=== PATIENT | female | born 1995 | race African-American/Black ===

== ENCOUNTER 2019-11-26 14:10 | Inpatient (IN) | payer OTHER ==
[2019-11-26 15:18] VITALS: BMI 23.5
[2019-11-26] MEDS ORDERED: AMPICILLIN - 2 GM in SODIUM CHLORIDE 100 ML IVPB ONE (15:49)
--- NOTE | 2019-11-26 15:56 | HP ---
Past Medical History - Admission Chief Complaint: active labor History Source: Patient Limitations to Obtaining History: Language Barrier - Past Medical History ...: 2 ...Para: 1 ...Term: 1 ...: 0 ...Spon : 0 ...Induced : 0 ...Living Children: 1 ...Multiple Gestation: 0 ...LMP: 03/13/19 ... Weeks Gestation by Dates: 36.6 ...EDC by Dates: 12/17/18 ...EDC by Sono: 12/02/19 - Past Surgical History Past Surgical History: Yes: None Hx Myomectomy: No Hx Transabdominal Cerclage: No - Smoking History Smoking history: Never smoked Have you smoked in the past 12 months: No - Social History Usual Living Arrangement: Yes: With Spouse Home Medications - Allergies Allergies/Adverse Reactions: Allergies Allergy/AdvReac Type Severity Reaction Status Date / Time No Known Allergies Allergy Verified 11/26/19 15:01 - Home Medications Home Medications: Ambulatory Orders Caplet 325 mg PO DAILY 11/26/19 Physical Exam - Maternity Vital Signs: Vital Signs Temperature 98.1 F 11/26/19 15:11 Pulse Rate 98 H 11/26/19 15:11 Respiratory Rate 18 11/26/19 15:11 Blood Pressure 130/71 11/26/19 15:11 O2 Sat by Pulse Oximetry (%) Constitutional: Yes: Well Nourished Eyes: Yes: WNL HENT: Yes: WNL Neck: Yes: WNL Cardiovascular: Yes: WNL Lungs: Normal air movement - Abdominal Exam/OB Number of Fetuses: Single Presentation: Vertex Contractions: Yes Regularity: Regular Intensity: Moderate Monitor Mode: External Category: I Accelerations: Uniform Decelerations: None - Vaginal Exam/OB Vaginal Bleeding: No Dilatation (cm): 8 Amniotic Membrane Status: Ruptured Presentation: Vertex/Position Station: 0 - Physical Exam Edema: No Problem List - Problems (1) 37 weeks gestation of Code(s): Z3A.37 - 37 WEEKS GESTATION OF Assessment/Plan SROM; active labor/ + GBS for
[2019-11-26 16:03] LABS: BASO % 0.4 % (0-2.0); EOS % 0.5 % (0-4.5); HEMATOCRIT 39.3 % (32.4-45.2); HEMOGLOBIN 13.1 GM/dL (10.7-15.3); LYMPH % 16.1 % (8-40); MCH 29.9 pg (25.7-33.7); MCHC 33.3 g/dl (32.0-36.0); MEAN CELL VOLUME 89.9 fl (80-96); MEAN PLT VOLUME 8.8 fl (7.5-11.1); MONO % 12.1 % (3.8-10.2); NEUT % 70.9 % (42.8-82.8); PLATELET COUNT 165 K/MM3 (134-434); RBC 4.37 M/mm3 (3.60-5.2); RDW 15.4 % (11.6-15.6); WHITE BLOOD COUNT 7.9 K/mm3 (4.0-10.0)
[2019-11-26 16:15] LABS: INR 0.91 (0.83-1.09); PROTHROMBIN TIME (PATIENT) 10.7 SEC (9.7-13.0)
[2019-11-26 16:18] LABS: ACTIVATED PTT 27.7 SECONDS (25.2-36.5)
[2019-11-26 16:28] LABS: CALCIUM 9.1 mg/dL (8.5-10.1); CREATININE 0.4 mg/dL (0.55-1.3); POTASSIUM 3.7 mmol/L (3.5-5.1)
[2019-11-26] MEDS: OXYTOCIN 20 UNITS in 0.9% NS 20 UNIT/1,000 ML INFUS.BAG IV SCH (16:28)
[2019-11-26] MEDS ORDERED: WITCH HAZEL 50% (TUCKS) 40 PAD/JAR PAD TP PRN (16:37)
[2019-11-26] MEDS ORDERED: METHYLERGONOVINE MALEATE 0.2 MG/1 ML AMP IM PRN (16:37)
[2019-11-26] MEDS ORDERED: BENZOCAINE 20% 57 GM BOTTLE TP PRN (16:37)
[2019-11-26] MEDS ORDERED: BENZOCAINE 28 GM HEMORRHOIDAL OINTMENT TP PRN (16:37)
[2019-11-26] MEDS ORDERED: IBUPROFEN 600 MG TABLET (FP) PO PRN (16:37)
[2019-11-26] MEDS ORDERED: BISACODYL 10 MG SUPP.RECT RC PRN (16:37)
[2019-11-26] MEDS ORDERED: ACETAMINOPHEN 325 MG TABLET (FP) PO PRN (16:37)
--- NOTE | 2019-11-26 16:42 | PN ---
Delivery - Delivery Vaginal Delivery: No Problems Maneuvers: full dilataion; CAN x ! and around leg x 1; intact perineum; placenta intac Type of Anesthesia: None Episiotomy/Laceration: None EBL (cc): 350 (, live baby boy; OA position; intact) Delivery, Single - Feeding Plan Initial Plan: Exclusive throughout hospitalization
[2019-11-26] MEDS ORDERED: D5W-LR W/ 20 UNITS OXYTOCIN 1,000 ML IV SCH (16:45)
[2019-11-26] MEDS ORDERED: OXYTOCIN 20 UNITS in 0.9% NS 1000 ML INFUS.BAG IV ONE (16:45)
[2019-11-26] MEDS ORDERED: IBUPROFEN 600 MG TABLET (FP) PO ONE (17:15)
[2019-11-26] MEDS ORDERED: ACETAMINOPHEN 325 MG TABLET (FP) ONE (17:15)
[2019-11-26] MEDS ORDERED: OXYTOCIN 20 UNITS in 0.9% NS 20 UNIT/1,000 ML INFUS.BAG IV ONE (17:41)
[2019-11-27 02:06] LABS: METHADONE, UR NEGATIVE ng/ml (CUTOFF=300); OPIATES, URI NEGATIVE ng/ml (CUTOFF=300); PHENCYCLIDINE,URINE NEGATIVE ng/ml (CUTOFF=25); URINE BENZODIAZEPINES NEGATIVE ng/ml (CUTOFF=200)
[2019-11-27 02:10] LABS: COCAINE, UR NEGATIVE ng/ml (CUTOFF=300); URINE AMPHETAMINES NEGATIVE ng/ml (CUTOFF=500); URINE BARBITURATES NEGATIVE ng/ml (CUTOFF=200)
[2019-11-27 08:08] LABS: BASO % 0.4 % (0-2.0); EOS % 0.4 % (0-4.5); HEMATOCRIT 36.8 % (32.4-45.2); LYMPH % 11.5 % (8-40); MCH 29.1 pg (25.7-33.7); MCHC 32.7 g/dl (32.0-36.0); MEAN CELL VOLUME 89.1 fl (80-96); MEAN PLT VOLUME 8.6 fl (7.5-11.1); MONO % 12.4 % (3.8-10.2); NEUT % 75.3 % (42.8-82.8); PLATELET COUNT 164 K/MM3 (134-434); RBC 4.13 M/mm3 (3.60-5.2); RDW 15.2 % (11.6-15.6); WHITE BLOOD COUNT 13.5 K/mm3 (4.0-10.0)
--- NOTE | 2019-11-27 09:31 | DS ---
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 without complaints. vss - af abd: soft, nt, fundus firm ve: min lochia, intact ext: no calf tenderness b/l a.p ppd 1 s/p pt. doing well states via trans phone would like to go home later today. f/u w in 4-5 weeks Discharge Summary Problems reviewed: Yes Reason For Visit: ADMISSION OF LABOR Current Active Problems 37 weeks gestation of (Acute) Procedures: Principal: Hospital Course: admitted in labor underwent uncomplicated PP course uneventful Condition: Good - Instructions Diet, Activity, Other Instructions: activity as tolerated , but avoid strenuous activity, heavy lifting and intercourse regular diet pericare Disposition: HOME - Home Medications Comprehensive Discharge Medication List: Ambulatory Orders Caplet 325 mg PO DAILY 11/26/19 Ibuprofen [Motrin -] 600 mg PO Q6H PRN #50 tablet 11/27/19 Witch Christine 50% (Tucks) [Tucks Pads -] 1 pad TP PRN PRN pad 11/27/19
[2019-11-27] MEDS ORDERED: DIPHTH,PERTUSS(ACELL),TET 0.5 ML DISP.SYRIN IM ONE (10:00)
[2019-11-27] MEDS: OXYTOCIN 20 UNITS in 0.9% NS 20 UNIT/1,000 ML INFUS.BAG IV SCH (21:49)
[2019-11-27] MEDS ORDERED: SENNOSIDES/DOCUSATE COMBO (SENNA PLUS) TABLET (UD) PO PRN (22:00)
[2019-11-28 14:05] VITALS: BP 90/58; PULSE 74; TEMP 97.4
== END 2019-11-28 14:40 | disposition home or self-care (01) | DRG 560 ==
LOC: JLDR 14:10 → J3W 17:50
PROVIDERS: ADMIT Obstetrics & Gynecology; ATTEND Obstetrics & Gynecology
PROC: 10E0XZZ Delivery of Products of Conception, External Approach (ICD-10-PCS; principal; 2019-11-26)
DX: O69.81X0 Labor and delivery complicated by cord around neck, without compression, not applicable or unspecified (principal); O69.82X0 Labor and delivery complicated by other cord entanglement, without compression, not applicable or unspecified; Z3A.37 37 weeks gestation of pregnancy; Z22.330 Carrier of Group B streptococcus; Z37.0 Single live birth
CPT/HCPCS: 36415; 59409; 80048; 80307; 85025; 85610; 85730; 86780; 86850; 86900; 86901; 87389; 90715; U0003